=== PATIENT | male | born 1960 | race Caucasian/White ===

== ENCOUNTER 2019-06-24 22:13 | Emergency (ER) | payer SELFPAY ==
--- NOTE | 2019-06-24 23:47 | ULT ---
EXAM: Right lower extremity venous Doppler HISTORY: Right lower extremity edema and pain. Bruising involving the medial right thigh. FINDINGS: Grayscale, color-flow, Doppler evaluation, spectral analysis of the right lower extremity venous stru ctures is performed with 2-D imaging. The right common femoral, superficial femoral, popliteal, posterior tibial, proximal greater saphenous and profunda femoral veins are imaged. There is normal luminal compressibility, flow, and augmentation in the visualized deep venous structu res of the right lower extremity. Limited sonographic evaluation was performed in the region of patient's area of ecchymosis medial rig ht thigh, but no mass or fluid collection is seen in this region. IMPRESSION: No evidence of a deep vein thrombosis in the visualized deep venous structures right lower extremity.
== END 2019-06-24 23:54 | disposition home or self-care (01) ==
LOC: ERS 22:13
DX: M79.81 Nontraumatic hematoma of soft tissue (principal); E11.9 Type 2 diabetes mellitus without complications; E78.5 Hyperlipidemia, unspecified; I10 Essential (primary) hypertension

== ENCOUNTER 2019-07-13 18:01 | Outpatient (CLI) | payer SELFPAY ==
--- NOTE | 2019-07-13 19:04 | RAD ---
LEFT FOOT THREE VIEWS: History: Heel pain x 2 months. FINDINGS: Some osteophytic change at the base of the first metatarsal. Calcaneal spurs at the insertion of the plantar fascia and Achilles tendon are noted. Mild arthritic change of the ankle and midfoot region a re noted. IMPRESSION: No acute findings. POS: [facility]
== END 2019-07-13 18:02 | disposition home or self-care (01) ==
LOC: SCSRAD 18:01
PROVIDERS: ATTEND Family Medicine
DX: M79.672 Pain in left foot (principal)

== ENCOUNTER 2023-05-29 14:21 | Outpatient (CLI) | payer OTHER | END 2023-05-29 14:22 | disposition home or self-care (01) | LOC: ULT 14:21 | PROVIDERS: ATTEND Family Medicine | DX: M79.604 Pain in right leg (principal); M79.605 Pain in left leg | CPT/HCPCS: 93970 ==